=== PATIENT | female | born 1980 | race Asian ===

== ENCOUNTER 2018-03-08 19:52 | Emergency (ER) | payer BC ==
[~2018-03-08] VITALS: Ht 170.2 cm; Wt 59.0 kg
[2018-03-08 19:52] VITALS: BP_SYST 135
--- NOTE | 2018-03-08 19:52 | NUR ---
Pt was sitting with in ER bed 3 and saw his blood in the trash can. Per , pt started to "have trouble breathing." Pt states she feels body aches. Pt crying and feeling anxious. Pt denies chest pain or N/V. No other injuries/complaints per patient or noted.
--- NOTE | 2018-03-08 19:52 | NUR ---
Patient to ER bed 3 to gown for evaluation. Side rails up.
--- NOTE | 2018-03-08 19:53 | NUR ---
ER Dr. Ontiveros at bedside examining patient.
[2018-03-08 21:21] VITALS: BP_SYST 112
--- NOTE | 2018-03-08 21:21 | NUR ---
Patient given written and verbal discharge instructions and verbalizes understanding. ER MD discussed with patient the results and treatment provided. Patient in stable condition. ID arm band removed. No Rx given. Patient educated on pain management and to follow up with PMD. Pain Scale 0. Opportunity for questions provided and answered. Medication side effect fact sheet provided.
== END 2018-03-08 21:21 | disposition home or self-care (01) ==
LOC: SED 19:52
DX: F45.8 Other somatoform disorders (principal); R03.0 Elevated blood-pressure reading, without diagnosis of hypertension
CPT/HCPCS: 99281

== ENCOUNTER 2019-03-07 18:11 | Emergency (ER) | payer BC ==
[~2019-03-07] VITALS: Ht 170.2 cm; Wt 59.0 kg
[2019-03-07 18:15] VITALS: BP_SYST 115
[2019-03-07] MEDS ORDERED: ONDANSETRON 4 MG ODT TAB PO ONE (19:45)
[2019-03-07] MEDS ORDERED: ACETAMINOPHEN 500 MG TABLET PO ONE (19:45)
[2019-03-07] MEDS ORDERED: CYCLOBENZAPRINE HCL 10 MG TABLET (FLEXERIL) PO ONE (21:30)
[2019-03-07 21:50] VITALS: BP_SYST 115
== END 2019-03-07 21:50 | disposition home or self-care (01) ==
LOC: SED 18:11
DX: S16.1XXA Strain of muscle, fascia and tendon at neck level, initial encounter (principal); S06.9X9A Unspecified intracranial injury with loss of consciousness of unspecified duration, initial encounter; S39.012A Strain of muscle, fascia and tendon of lower back, initial encounter; R03.0 Elevated blood-pressure reading, without diagnosis of hypertension; V43.52XA Car driver injured in collision with other type car in traffic accident, initial encounter; Y93.89 Activity, other specified; Y92.413 State road as the place of occurrence of the external cause; Y99.8 Other external cause status
CPT/HCPCS: 70450; 72040; 72100; 81025; 99284; Q0162

== ENCOUNTER 2023-03-17 03:11 | Inpatient (IN) | payer BC, OTHER ==
[~2023-03-17] VITALS: Ht 170.2 cm; Wt 62.6 kg
[2023-03-17 03:13] VITALS: BP_SYST 154; PULSE 66; RESP 22; TEMP 97.3; O2SAT 99
[2023-03-17] MEDS ORDERED: NACL 0.9% 1,000 ML IV ONE (03:30)
[2023-03-17] MEDS ORDERED: ONDANSETRON HCL 4 MG/2 ML VIAL IVP ONE (03:30)
[2023-03-17] MEDS ORDERED: KETOROLAC TROMETHAMINE 30 MG VIAL IVP ONE (03:30)
[2023-03-17] MEDS ORDERED: PANTOPRAZOLE SODIUM 40 MG/VIAL (PROTONIX) IVP ONE (03:30)
[2023-03-17 04:03] LABS: ANION GAP 7 (5-15); CALCIUM 9.4 mg/dL (8.4-11.0); CARBON DIOXIDE 26 mmol/L (23-29); CHLORIDE 100 mmol/L (98-107); CREATININE 0.72 mg/dL (0.55-1.30); GFR AFRICAN AMERICAN 115 mL/min (>90); GLUCOSE 121 mg/dL (74-106); POTASSIUM 3.6 mmol/L (3.5-5.1); SODIUM SERUM 133 mmol/L (136-145); UREA NITROGEN, BLOOD 14 mg/dL (8-21)
[2023-03-17 04:04] LABS: BILIRUBIN,URINE NEGATIVE (NEGATIVE); CLARITY/URINE CLEAR (CLEAR); COLOR,URINE YELLOW (YELLOW); GLUCOSE,URINE NEGATIVE (NEGATIVE); KETONES,URINE 2+ (NEGATIVE); LEUKOCYTE ESTERASE ,URINE NEGATIVE (NEGATIVE); NITRITE, URINE NEGATIVE (NEGATIVE); PH,URINE 7.5 (5.0-8.0); PROTEIN URINE NEGATIVE (NEGATIVE); UROBILINOGEN,URINE 0.2 (0.2-1.0)
[2023-03-17 04:05] LABS: INFLUENZA TYPE A Negative (NEGATIVE); INFLUENZA TYPE B NEGATIVE (NEGATIVE)
[2023-03-17 04:08] LABS: COVID19 ANTIGEN SOFIA FIA NEGATIVE (NEGATIVE)
[2023-03-17 04:09] LABS: BLOOD, URINE TRACE (NEGATIVE)
[2023-03-17 04:12] LABS: BACTERIA,URINE None Seen /HPF (None Seen); WBC,URINE 0-3 /HPF (0-3)
[2023-03-17 04:15] LABS: BASOPHILS # (AUTO) 0.1 K/uL (0.0-0.2); BASOPHILS % (AUTO) 0.7 % (0.0-2.0); EOSINOPHILS % (AUTO) 0.2 % (0.0-4.0); HEMATOCRIT 37.1 % (36-48); HEMOGLOBIN 12.1 g/dL (12.0-16.0); LYMPHOCYTES # (AUTO) 1.7 K/uL (1.0-5.5); LYMPHOCYTES % (AUTO) 20.7 % (20.5-51.5); MEAN CORPUSCULAR HEMOGLOBIN 29 pg (27-31); MEAN CORPUSCULAR HGB CONC 33 % (32-36); MEAN CORPUSCULAR VOLUME 87 fL (79.0-98.0); MONOCYTES # (AUTO) 0.4 K/uL (0.0-1.0); MONOCYTES % (AUTO) 4.9 % (1.7-9.3); NEUTROPHILS # (AUTO) 6.1 K/uL (1.8-7.7); NEUTROPHILS % (AUTO) 73.5 % (40.0-70.0); PLATELET COUNT (AUTO) 256 K/uL (130-430); RED BLOOD CELL COUNT(AUTO) 4.25 MIL/uL (4.2-6.2); WHITE BLOOD COUNT (AUTO) 8.3 K/uL (4.8-10.8)
[2023-03-17 04:20] LABS: GFR NON AFRICAN-AMERICAN 95 mL/min (>90)
[2023-03-17 04:21] LABS: ALANINE AMINOTRANSFERASE 19 U/L (12-78); ALBUMIN 3.8 g/dL (3.4-4.8); ASPARTATE AMINOTRANSFERASE 15 U/L (10-37); LIPASE 27 U/L (16-77); TOTAL BILIRUBIN 0.4 mg/dL (0.0-1.0); TOTAL PROTEIN, SERUM 7.6 g/dL (6.4-8.3)
[2023-03-17] MEDS ORDERED: ASPIRIN 325 MG TABLET PO ONE (04:30)
[2023-03-17] MEDS ORDERED: MAGNESIUM SULFATE 50 ML IV PRN (08:15)
[2023-03-17] MEDS ORDERED: DOCUSATE SODIUM 100 MG CAPSULE PO PRN (08:15)
[2023-03-17] MEDS ORDERED: ONDANSETRON HCL 4 MG/2 ML VIAL IVP PRN (08:15)
[2023-03-17] MEDS ORDERED: MORPHINE 2 MG/ML INJ. SYRINGE IVP PRN ×2 (08:15)
[2023-03-17] MEDS ORDERED: MUPIROCIN 2% TOPICAL OINTMENT 22 GM NS PRN (08:15)
[2023-03-17] MEDS ORDERED: LORazepam 2 MG/ML VIAL IVP PRN (08:15)
[2023-03-17] MEDS ORDERED: ZOLPIDEM TARTRATE 5 MG TABLET PO PRN (08:15)
[2023-03-17] MEDS ORDERED: POTASSIUM CHLORIDE 20 MEQ TABLET.ER PO PRN (08:15)
[2023-03-17] MEDS ORDERED: NALOXONE HCL 2 MG/2 ML SYR IVP PRN ×2 (08:15)
[2023-03-17] MEDS ORDERED: ACETAMINOPHEN 325 MG TABLET PO PRN ×2 (08:15→09:45)
[2023-03-17 08:36] VITALS: BP_SYST 115; PULSE 60; RESP 16; TEMP 97.8; O2SAT 100
[2023-03-17] MEDS ORDERED: ENOXAPARIN SODIUM 60 MG/0.6 ML SYRINGE SUBCUT SCH (09:00)
[2023-03-17] MEDS ORDERED: METOPROLOL TARTRATE 25 MG TABLET PO SCH ×2 (09:00)
[2023-03-17 11:32] VITALS: BP_SYST 123; PULSE 49; RESP 16; TEMP 98.1; O2SAT 96
[2023-03-18 07:52] LABS: BARBITURATE, URINE NEGATIVE (NEG <=200); BENZODIAZEPINE, URINE NEGATIVE (NEG <=150); METHAMPHETAMINES SCREEN,URINE NEGATIVE (NEG <=500); URINE AMPHETAMINE NEGATIVE (NEG <=500); URINE METHADONE NEGATIVE (NEG <=200)
[2023-03-18 07:53] LABS: CANNABINOID, URINE NEGATIVE (NEG <=50); COCAINE, URINE NEGATIVE (NEG <=150); OPIATE, URINE POSITIVE (NEG <=100); PHENCYCLIDINE SCREEN,URINE NEGATIVE (NEG <=25); UR TRICYCLIC ANTIDEPRESSANTS NEGATIVE (NEG <=300); URINE OXYCODONE SCREEN NEGATIVE (NEG <=100); URINE PROPOXYPHENE SCREEN NEGATIVE (NEG <=300)
== END 2023-03-17 11:15 | disposition left against medical advice (07) | DRG 282 ==
LOC: SED 03:11 → STU 05:05
PROVIDERS: ADMIT General Practice; ATTEND General Practice
DX: I21.4 Non-ST elevation (NSTEMI) myocardial infarction (principal); I10 Essential (primary) hypertension; Z20.822 Contact with and (suspected) exposure to COVID-19; Z53.29 Procedure and treatment not carried out because of patient's decision for other reasons; Z79.01 Long term (current) use of anticoagulants
CPT/HCPCS: 36415; 71045; 76376; 76705; 80053; 80307; 81000; 81001; 81015; 83037; 83690; 84443; 84484; 85025; 93005; 96374; 96375; 99291; C9113; G0378; J1650; J1885; J2405; Q9967